=== PATIENT | female | born 1960 | race Caucasian/White ===

== ENCOUNTER 2017-07-23 14:13 | Emergency (ER) | payer OTHER ==
[2017-07-23 17:58] VITALS: BP 124/85
--- NOTE | 2017-07-23 18:07 | UC ---
FLU HPI - HPI Summary HPI Summary: 56 y/o female with symptoms of: Saturday pt c/o cough, bodyache, fatigue and sinus pain/pressure, chills since Saturday. Meds: mucinex cold/flu prn. Denies fever. POssible exposure to flu. - History of Current Complaint Chief Complaint: UCRespiratory Stated Complaint: FLU SXS Time Seen by Provider: 07/23/17 17:39 Hx Obtained From: Patient ?: No Onset/Duration: Sudden Onset Severity Currently: Mild Pain Intensity: 0 Pain Scale Used: 0-10 Numeric - Allergy/Home Medications Allergies/Adverse Reactions: Allergies Allergy/AdvReac Type Severity Reaction Status Date / Time amoxicillin Allergy See Comment Verified 07/23/17 17:48 ampicillin Allergy See Comment Verified 07/23/17 17:48 Penicillins Allergy See Comment Verified 07/23/17 17:48 Home Medications: Home Medications Levothyroxine TAB* [Synthroid TAB*] 150 mcg PO DAILY 07/23/17 [History Confirmed 07/23/17] PMH/Surg Hx/FS Hx/Imm Hx Previously Healthy: Yes - Surgical History Surgical History: Yes Surgery Procedure, Year, and Place: Thyroidectomy. Tubal ligation - Social History Alcohol Use: None Substance Use Type: None Smoking Status (MU): Light Every Day Tobacco Smoker Type: Cigarettes Length of Time of Smoking/Using Tobacco: 5-6 cigs/day Review of Systems Constitutional: Chills, Fatigue ENT: Sore Throat, Sinus Congestion Respiratory: Cough Neurological: Weakness Is Patient Immunocompromised?: No All Other Systems Reviewed And Are Negative: Yes Physical Exam Triage Information Reviewed: Yes Appearance: No Pain Distress, Well-Nourished, Ill-Appearing - mild illness Vital Signs: Initial Vital Signs Temp 97.2 F 07/23/17 17:48 Pulse 64 07/23/17 17:48 Resp 16 07/23/17 17:48 BP 124/85 07/23/17 17:48 Pulse Ox 100 07/23/17 17:48 Vital Signs Reviewed: Yes Eyes: Positive: Conjunctiva Clear ENT: Positive: Pharyngeal erythema - minimal no exudates, TMs normal, Sinus tenderness - mild b/l, Uvula midline Neck: Positive: Supple, Nontender, Enlarged Nodes @ - minimal LAD submand Respiratory: Positive: Chest non-tender, Lungs clear, Normal breath sounds, No respiratory distress, No accessory muscle use. Negative: Crackles, Rhonchi, Stridor, Wheezing Cardiovascular: Positive: No Murmur, Pulses Normal Abdomen Description: Negative: CVA Tenderness (R), CVA Tenderness (L) Flu Course/Dx - Course Course Of Treatment: rapid flu- negative, likely viral URI, conservative treatment, follow up with PCP - Differential Dx/Diagnosis Provider Diagnoses: VIral URI Discharge - Discharge Plan Condition: Good Disposition: HOME Patient Education Materials: Viral Syndrome (ED) Forms: *Work Release Referrals: No Primary Care Phys,NOPCP [Primary Care Provider] - Additional Instructions: - Increase fluids, rest - Motrin/ tylenol for pain, fever
== END 2017-07-23 18:59 | disposition home or self-care (01) ==
LOC: UCCORT 14:13
DX: J06.9 Acute upper respiratory infection, unspecified (principal); E89.0 Postprocedural hypothyroidism; Z88.0 Allergy status to penicillin; F17.210 Nicotine dependence, cigarettes, uncomplicated
CPT/HCPCS: 87502; 99201; G0463

== ENCOUNTER 2017-11-13 07:30 | Emergency (ER) | payer OTHER ==
[2017-11-13 07:39] VITALS: BP 115/77
--- NOTE | 2017-11-13 08:16 | UC ---
General HPI - HPI Summary HPI Summary: She has moved from [place] due to the of her mother and two other family members. She has been working alot to pay for the funerals and expenses. She does not have a pcp and has not been taking her meclizine for chronic vertigo and levothyroxine after her thyroidectomy. She feels generally well except for some dry skin. - History of Current Complaint Chief Complaint: UCMedRefill Stated Complaint: MED REFILL Time Seen by Provider: 11/13/17 08:04 Hx Obtained From: Patient Onset/Duration: Gradual Onset Timing: Constant Onset Severity: Mild Current Severity: Mild Pain Intensity: 0 Associated Signs & Symptoms: Positive: Dizziness. Negative: Abdominal Pain, Confusion, Cough, Chest Pain, Decreased Responsiveness, Diarrhea, Dysuria, Diaphoresis, Edema, Fever, Headache, Hematemesis, Hemoptysis, Nausea, Palpitations, Syncope, SOB, Trauma, Vomiting, Weakness - Allergy/Home Medications Allergies/Adverse Reactions: Allergies Allergy/AdvReac Type Severity Reaction Status Date / Time amoxicillin Allergy See Comment Verified 11/13/17 07:39 ampicillin Allergy See Comment Verified 11/13/17 07:39 Penicillins Allergy See Comment Verified 11/13/17 07:39 PMH/Surg Hx/FS Hx/Imm Hx Previously Healthy: No Endocrine History: Thyroid Disease - Surgical History Surgical History: Yes Surgery Procedure, Year, and Place: Thyroidectomy. Tubal ligation - Family History Known Family History: Positive: Other - Social History Occupation: Employed Full-time Alcohol Use: None Substance Use Type: None Smoking Status (MU): Light Every Day Tobacco Smoker Type: Cigarettes Length of Time of Smoking/Using Tobacco: 5-6 cigs/day Review of Systems Skin: Other - dryness. All Other Systems Reviewed And Are Negative: Yes Physical Exam Triage Information Reviewed: Yes Appearance: Well-Appearing, No Pain Distress, Well-Nourished Vital Signs: Initial Vital Signs Temp 97.9 F 11/13/17 07:35 Pulse 69 11/13/17 07:35 Resp 18 11/13/17 07:35 BP 115/77 11/13/17 07:35 Pulse Ox 100 11/13/17 07:35 Vital Signs Reviewed: Yes Eyes: Positive: Conjunctiva Clear ENT: Positive: Normal ENT inspection Neck: Positive: Supple, Nontender, No Lymphadenopathy. Negative: Nuchal Rigidity Respiratory: Positive: Lungs clear, Normal breath sounds, No respiratory distress, No accessory muscle use. Negative: Respiratory distress, Decreased breath sounds, Accessory muscle use, Crackles Cardiovascular: Positive: No Murmur, Pulses Normal, Brisk Capillary Refill Abdomen Description: Positive: No Organomegaly, Soft. Negative: CVA Tenderness (R), CVA Tenderness (L), Distended, Guarding Musculoskeletal: Positive: Strength Intact, ROM Intact, No Edema Neurological: Positive: Alert, Muscle Tone Normal. Negative: Fatigued Psychological: Positive: Age Appropriate Behavior Skin: Negative: rashes Course/Dx - Course Course Of Treatment: she agrees to find a pcp quickly using the list we have provided. Her complaints and medical conditions are chronic and she has no new acute concerns. - Differential Dx - Multi-Symptom Provider Diagnoses: med refills. pcp referral. Discharge - Sign-Out/Discharge Documenting (check all that apply): Discharge/Admit/Transfer - Discharge Plan Condition: Good Disposition: HOME Prescriptions: Levothyroxine TAB* [Synthroid 150 MCG TAB*] 150 mcg PO DAILY #30 tab Meclizine TAB* [Antivert 12.5 TAB*] 12.5 mg PO BID PRN #30 tab PRN Reason: Vertigo Patient Education Materials: Hypothyroidism (ED) Referrals: No Primary Care Phys,NOPCP [Primary Care Provider] - Additional Instructions: Use the list we gave you to find a new primary care doctor. - Billing Disposition and Condition Condition: GOOD Disposition: Home
== END 2017-11-13 08:17 | disposition home or self-care (01) ==
LOC: UCCORT 07:30
DX: R42 Dizziness and giddiness (principal); Z76.0 Encounter for issue of repeat prescription; E89.0 Postprocedural hypothyroidism; Z88.0 Allergy status to penicillin; F17.210 Nicotine dependence, cigarettes, uncomplicated
CPT/HCPCS: 99212; G0463

== ENCOUNTER 2018-01-21 12:53 | Emergency (ER) | payer OTHER ==
[2018-01-21 13:15] VITALS: BP 130/77
--- NOTE | 2018-01-21 13:26 | UC ---
Back Pain HPI - HPI Summary HPI Summary: Pt c/o sudden onset generalized back pain. Denies injury, trauma or hx of back "problems". Pt states she had viral illness two weeks ago and was "coughing all the time". X 10 days. Pt reports cough has resolved and now has back pain, stiffness that from low back to base of skull. Pt also reports that in last two weeks her "stress level at work has significantly increased". - History of Current Complaint Stated Complaint: BACK PAIN Time Seen by Provider: 01/21/18 13:11 Hx Obtained From: Patient ?: No Onset/Duration: Sudden Onset, Lasting Days Timing: Constant Severity Initially: Moderate Severity Currently: Moderate Pain Intensity: 6 Back Pain: Is Diffuse Character: Dull, Aching, Stiffness Aggravating Factor(s): Movement Alleviating Factor(s): Nothing Associated Signs And Symptoms: Positive: Negative - Risk Factors AAA Risk Factors: Negative TAD Risk Factors: Negative Cauda Equina Risk Factors: Negative Epidural Abscess Risk Factors: Negative - Allergies/Home Medications Allergies/Adverse Reactions: Allergies Allergy/AdvReac Type Severity Reaction Status Date / Time amoxicillin Allergy See Comment Verified 01/21/18 13:11 ampicillin Allergy See Comment Verified 01/21/18 13:11 Penicillins Allergy See Comment Verified 01/21/18 13:11 Home Medications: Home Medications Acetaminophen [Acetaminophen ER] 650 mg PO Q6H PRN 01/21/18 [History Confirmed 01/21/18] PMH/Surg Hx/FS Hx/Imm Hx Previously Healthy: Yes Endocrine History: Thyroid Disease - Surgical History Surgical History: Yes Surgery Procedure, Year, and Place: Thyroidectomy, 2005, [place]; Tubal Ligation, 1994, [place] - Family History Known Family History: Positive: Cardiac Disease, Other - Social History Occupation: Employed Full-time Lives: With Family Alcohol Use: None Substance Use Type: None Smoking Status (MU): Heavy Every Day Tobacco Smoker Type: Cigarettes Amount Used/How Often: 1/2 PPD Length of Time of Smoking/Using Tobacco: Since Age 13 Have You Smoked in the Last Year: Yes Household Exposure Type: Cigarettes Review of Systems Constitutional: Negative Skin: Negative Eyes: Negative ENT: Negative Respiratory: Negative Cardiovascular: Negative Gastrointestinal: Negative Genitourinary: Negative Motor: Decreased ROM - back Neurovascular: Negative Musculoskeletal: Myalgia Neurological: Negative Psychological: Negative Is Patient Immunocompromised?: No All Other Systems Reviewed And Are Negative: Yes Physical Exam Triage Information Reviewed: Yes Appearance: Well-Appearing Vital Signs: Initial Vital Signs Temp 98.1 F 01/21/18 13:09 Pulse 74 01/21/18 13:09 Resp 16 01/21/18 13:09 BP 130/77 01/21/18 13:09 Pulse Ox 99 01/21/18 13:09 Vital Signs Reviewed: Yes Eye Exam: Normal ENT: Positive: Hearing grossly normal Dental Exam: Normal Neck exam: Normal Neck: Positive: Supple Respiratory Exam: Normal Respiratory: Positive: Normal breath sounds Cardiovascular Exam: Normal Musculoskeletal: Positive: Other: - c/o generalized pain and stiffness along spine Neurological Exam: Normal Psychological Exam: Normal Skin Exam: Normal Back Pain Course/Dx - Differential Dx/Diagnosis Differential Diagnosis/HQI/PQRI: Strain, Sprain Provider Diagnoses: back pain. myalgia Discharge - Sign-Out/Discharge Documenting (check all that apply): Patient Departure - Discharge Plan Condition: Stable Disposition: HOME Prescriptions: Cyclobenzaprine TAB* [Flexeril 10 MG TAB*] 10 mg PO TID PRN #15 tab PRN Reason: Pain Patient Education Materials: Arthralgia (ED), Back Pain (ED) Forms: *Work Release Referrals: Farida Meier [Primary Care Provider] - If Needed - Billing Disposition and Condition Condition: STABLE Disposition: Home
== END 2018-01-21 13:38 | disposition home or self-care (01) ==
LOC: UCCORT 12:53
DX: M54.9 Dorsalgia, unspecified (principal); M79.1 Myalgia; Z88.0 Allergy status to penicillin; F17.210 Nicotine dependence, cigarettes, uncomplicated
CPT/HCPCS: 99212; G0463

== ENCOUNTER 2018-07-29 14:03 | Emergency (ER) | payer OTHER ==
--- OUTSIDE RECORDS SUMMARY | 2018-07-29 14:17 | XMS REPORT | Continuity of Care Document ---
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 Farida Meier FNP Primary Care Physician Unavailable Payers Date Identification Numbers Payment Provider Subscriber Policy Number: [id number] Emeteriojuan ranjel Rangel PayID: [id number] [id number] [place] [address] Advance Directives Description No Information Available Problems Description No Information Family History Date Family Member(s) Observation Comments Father 86 Father Thyroid Disease : (age 83 Years) Mother due to Heart Disease Mother due to Diabetes () Mother due to COPD () Mother due to Hypertension () Social History Type Date Description Comments Sex Female Tobacco Use Start: Unknown Current Cigarette Smoker 5-10 Cigarettes Daily ETOH Use Rare Use Of Alcohol Recreational Drug Use Never Used Drugs Allergies, Adverse Reactions, Alerts Date Description Reaction Status Severity Comments 07/24/2018 Penicillin Active 07/24/2018 Amoxicillin Active 07/24/2018 Ampicillin Active Medications Medication Date Status Form Strength Qnty SIG Indications Ordering Provider Prednisone 07/24/ Active Tablets 10mg 5tabs 1 by Chagn, 2019 mouth Paulo, every M.D. morning Levothyroxine // Active Tablets 200mcg 1 by Unknown Sodium 0000 mouth every day Sulfamethoxazol / Active Tablets 400-80mg Unknown e-Trimethoprim 0000 Fluticasone / Active Suspension 50mcg/Act 2 sprays Unknown Propionate 0000 both nostrils every day Zyrtec Allergy / Active Tablets 10mg 1 by Unknown 0000 Dispers mouth every day Sinus Rinse / Active Packet sinus Unknown 0000 rinse Immunizations Description No Information Available Vital Signs Date Vital Result Comment 07/24/2018 1:30pm Weight 160.00 lb Height 63 inches 5'3" BMI (Body Mass Index) 28.3 kg/m2 BP Systolic 113 mmHg BP Diastolic 80 mmHg Heart Rate 77 /min O2 % BldC Oximetry 95 % Body Temperature 98.5 F Pain Level 0 Results Description No Information Available Procedures Description No Information Available Encounters Description No Information Available Plan of Treatment Future Appointment(s):08/07/2018 2:00 pm - Alycia Cabrera NP at Main Office
--- OUTSIDE RECORDS SUMMARY | 2018-07-29 14:17 | XMS REPORT | Continuity of Care Document ---
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 morning Levothyroxine / Active Tablets 200mcg 1 by Unknown Sodium [...] 0 Results Description No Information Available Procedures Date Code Description Status 07/24/2018 06223 Nasal Endoscopy, Diag. 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
[2018-07-29 14:50] VITALS: BP 140/78
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
== END 2018-07-29 16:32 | disposition home or self-care (01) ==
LOC: UCCORT 14:03
DX: R42 Dizziness and giddiness (principal); F17.210 Nicotine dependence, cigarettes, uncomplicated; H53.8 Other visual disturbances; E03.9 Hypothyroidism, unspecified; Z79.899 Other long term (current) drug therapy; Z88.0 Allergy status to penicillin
CPT/HCPCS: 70450; 93005; 99212; G0463